=== PATIENT | male | born 1990 | race Caucasian/White ===

== ENCOUNTER 2021-09-06 10:42 | Emergency (ER) | payer OTHER, SELFPAY ==
--- NOTE | 2021-09-06 10:58 | DI.RAD.S_ITS ---
PROCEDURE: XR CHEST 1V INDICATIONS: chest pain TECHNIQUE: One view of the chest was acquired. COMPARISON: None. FINDINGS: Surgical changes and devices: None. Lungs and pleura: Lungs are clear. No pleural effusions or pneumothorax. Low lung volumes accentuate pulmonary interstitium and heart size. Mediastinum: Mediastinal contours appear normal. Heart size is normal. Bones and chest wall: No suspicious bony lesions. Overlying soft tissues appear unremarkable. IMPRESSION: No acute cardiopulmonary findings Approved by: Davon Langley M.D. on 09/06/2021 at 10:31
[2021-09-06 11:00] VITALS: BP 136/101; PULSE 96; RESP 20; TEMP 36.8; O2SAT 97; BMI 38.1
[2021-09-06 11:08] VITALS: PULSE 86; RESP 22; O2SAT 95
[2021-09-06 11:12] LABS: Add Manual Diff / Slide Review NO; Basophils Absolute Auto 100 /uL (0-100); Basophils Percent Auto 0.8 % (0-2); Eosinophils Absolute Auto 200 /uL (0-450); Eosinophils Percent Auto 3.2 % (2-4); Hematocrit 42.5 % (41-53); Hemoglobin 15.1 g/dL (13.5-17.5); Lymphocytes Absolute Auto 2200 /uL (1100-4500); Lymphocytes Percent Auto 31.5 % (25-40); Mean Corpuscular HGB Conc 35.7 % (30-36); Mean Corpuscular Hemoglobin 32.8 PG (26-34); Mean Corpuscular Volume 91.9 fL (80-100); Monocytes Absolute Auto 400 /uL (0-900); Monocytes Percent Auto 6.5 % (3-14); Neutrophils Absolute Auto 4000 /uL (1500-7000); Platelet Count 249 X10^3/uL (150-400); Red Blood Cell Count 4.62 X10^6/uL (4.5-5.9); Red Cell Distribution Width 12.6 % (11.6-14.8); White Blood Cell Count 6.9 X10^3/uL (4.5-11.0)
[2021-09-06 11:30] VITALS: PULSE 81; RESP 17; O2SAT 98
[2021-09-06 11:39] LABS: Alanine Aminotransferase 145 IU/L (<50); Albumin 5.2 g/dL (3.5-5.0); Albumin Globulin Ratio 1.3 (1.0-2.8); Alkaline Phosphatase 76 U/L (38-126); Aspartate Aminotransferase 84 IU/L (17-59); BUN Creatinine Ratio 19.8 (6-22); Bilirubin Total 0.8 mg/dL (0.2-1.3); Blood Urea Nitrogen 16 mg/dL (9-20); Calcium 9.6 mg/dL (8.4-10.2); Carbon Dioxide 23 mmol/L (22-32); Chloride 104 mmol/L (98-107); Creatine Kinase 111 U/L (55-170); Estimated Glomerular Filt Rate > 60 mL/min (>60); Globulin 3.9 g/dL (1.7-4.1); Glucose 150 mg/dL (70-100); HEMOLYSIS < 15 (0-50); Lipase 132 U/L (23-300); Magnesium 1.8 mg/dL (1.6-2.3); Potassium 3.9 mmol/L (3.4-5.1); Sodium 139 mmol/L (137-145); Total Protein 9.1 g/dL (6.3-8.2)
[2021-09-06 11:50] LABS: Troponin I < 0.012 ng/mL (0.01-0.034)
[2021-09-06 12:00] VITALS: PULSE 88; RESP 24; O2SAT 96
[2021-09-06 12:05] LABS: CKMB % Relative Index 0.7 % (1.5-5.0); Creatine Kinase MB 0.77 ng/mL (<2.37)
[2021-09-06 12:30] VITALS: PULSE 89; RESP 24; O2SAT 95
[2021-09-06] MEDS: hydrOXYzine pamoate 25 MG CAPSULE PO (12:35)
--- NOTE | 2021-09-06 12:35 | ED.CHESTPAIN ---
HPI - Chest Pain <Katherine Ovalle [facility] - Last Filed: 09/06/21 14:18> General Chief Complaint: Chest Pain Stated Complaint: think he had a heart attack this morning Time Seen by Provider: 09/06/21 12:03 Source: patient Mode of arrival: Family Vehicle Limitations: no limitations History of Present Illness HPI narrative: This is a 30-year-old male who presents to the emergency department complaining of left-sided chest pain and left arm sensation changes which happened last night, and he states he woke up with this same pain again this morning. Patient states that he has been very stressed out at work recently, significantly depressed, anxious, having panic and anxiety symptoms and does not currently have a doctor. Patient states that he has been taking on more at work to help cope with his depression. Patient also states that he drinks a lot of coffee, quit smoking two years ago, drinks 1-2 beers each night and 10-12 beers on the weekends. Patient states that he would like to start getting healthy your, states that he has cut down on his alcohol consumption recently, he feels anxious, endorses thoughts of suicide in the past, not today. Patient denies ever being on an antidepressant, states that he is open to starting one, open to counseling, does not currently have a therapist or Dr. To follow-up with. He is open to seeing social work today denies any homicidal or suicidal ideation this time, denies any audio or visual hallucinations. Patient states he has a history of heartburn and epigastric pain, reports he has not been eating well, uses marijuana occasionally. Patient denies any nausea, vomiting, fever, diaphoresis this morning. He states that he has been having these chest pain symptoms often on associated with anxiety over the last two months. Patient does endorse having suicidal ideation at other times, not currently, with [place]. Related Data Previous Rx's Medication Instructions Recorded alprazolam 0.5 mg tablet (Xanax) 0.5 mg PO BID PRN #14 tab 09/06/21 hydroxyzine HCl 25 mg tablet 25 mg PO BID PRN #20 tab 09/06/21 omeprazole 20 mg capsule,delayed 20 mg PO DAILY #30 cap 09/06/21 release Allergies Allergy/AdvReac Type Severity Reaction Status Date / Time No Known Drug Allergies Allergy Verified 09/06/21 10:57 Review of Systems <TREVON Esposito - Last Filed: 09/06/21 14:18> Review of Systems Narrative: General: denies fever, chills, malaise, sweats, fatigue Head/Neck: denies headache, neck pain, dizziness Eyes: denies visual changes, eye pain Cardio: Endorses chest pain, states was having a racing heart at the time of his chest pain, when he got up, it went away. Respiratory: denies dyspnea, cough, orthopnea, states that he feels short of breath when he is anxious GI: denies abdominal pain, nausea, vomiting, or diarrhea : denies dysuria, hematuria, urinary retention, frequency or incontinence MSK: denies joint pain, muscle weakness Skin: denies rash, itching, skin lesions or other Neuro: denies numbness, tingling Patient History <TREVON Esposito - Last Filed: 09/06/21 14:18> Social History Smoking Status: Former smoker Smoking Status: Former smoker tobacco type: cigarettes alcohol intake frequency: 0-2 drinks per day Alcohol type: beer Substance Use Type: marijuana Exam <TREVON Esposito - Last Filed: 09/06/21 14:18> Narrative Exam Narrative: Independently reviewed vitals signs and nursing notes. General: cooperative, comfortable, in no acute distress, well groomed Head: atraumatic, symmetrical facial expressions Neck: supple Eyes: equal round and reactive, EOMI, conjunctiva normal Nose: nares patent, no rhinorrhea Mouth/Throat: moist mucus membranes Cardiovascular: regular rate and rhythm, no peripheral edema, warm extremities Respiratory: normal effort, able to speak in complete sentences, no audible wheezing, stridor, or rales. No retractions or tachypnea. GI: abdomen soft, nontender to palpation, nondistended, no masses, no exquisite tenderness with exam, without guarding or rebound. MSK: moves all extremities, neurovascularly intact, no weakness, normal tone Skin: brisk capillary refill, no rash, no erythema Neuro: normal speech and cognition, A&O x3 Psych: mental status is grossly normal, congruent mood, normal affect, pleasant and cooperative, patient is tearful when talking about his depression, he is open to therapy, antidepressant medication, social work, and establishing care with primary care, he is seeking out today and denies any intention of self-harm. Initial Vital Signs Initial Vital Signs: Vital Signs Temperature 98.2 F 09/06/21 11:00 Pulse Rate 96 H 09/06/21 11:00 Respiratory Rate 20 09/06/21 11:00 Blood Pressure 136/101 H 09/06/21 11:00 Pulse Oximetry 97 09/06/21 11:00 <Raissa Ott DO - Last Filed: 09/08/21 10:49> Initial Vital Signs Initial Vital Signs: Vital Signs Temperature 98.2 F 09/06/21 11:00 Pulse Rate 96 H 09/06/21 11:00 Respiratory Rate 20 09/06/21 11:00 Blood Pressure 136/101 H 09/06/21 11:00 Pulse Oximetry 97 09/06/21 11:00 Course <TREVON Esposito - Last Filed: 09/06/21 14:18> Orders Ordered: Discontinued Medications Hydroxyzine Pamoate (Hydroxyzine Pamoate 25 Mg Capsule) 25 mg PO NOW ONE Stop: 09/06/21 12:23 Last Admin: 09/06/21 12:35 Dose: 25 mg Documented by: LUCERO Pantoprazole Sodium (Pantoprazole Dr 20 Mg Tablet) 20 mg PO NOW ONE Stop: 09/06/21 12:23 Last Admin: 09/06/21 12:36 Dose: 20 mg Documented by: LUCERO Vital Signs Vital signs: Vital Signs - 8 hr 09/06/21 11:00 09/06/21 11:08 09/06/21 11:30 Temperature 98.2 F Pulse Rate 96 H 86 81 Respiratory Rate 20 22 17 Blood Pressure 136/101 H Pulse Oximetry 97 95 98 09/06/21 12:00 09/06/21 12:30 09/06/21 13:00 Temperature Pulse Rate 88 89 94 H Respiratory Rate 24 24 18 Blood Pressure Pulse Oximetry 96 95 96 <Raissa Ott DO - Last Filed: 09/08/21 10:49> Orders Ordered: Discontinued Medications Hydroxyzine Pamoate (Hydroxyzine Pamoate 25 Mg Capsule) 25 mg PO NOW ONE Stop: 09/06/21 12:23 Last Admin: 09/06/21 12:35 Dose: 25 mg Documented by: LUCERO Pantoprazole Sodium (Pantoprazole Dr 20 Mg Tablet) 20 mg PO NOW ONE Stop: 09/06/21 12:23 Last Admin: 09/06/21 12:36 Dose: 20 mg Documented by: LUCERO Vital Signs Vital signs: Vital Signs - 8 hr 09/06/21 11:00 09/06/21 11:08 09/06/21 11:30 Temperature 98.2 F Pulse Rate 96 H 86 81 Respiratory Rate 20 22 17 Blood Pressure 136/101 H Pulse Oximetry 97 95 98 09/06/21 12:00 09/06/21 12:30 09/06/21 13:00 Temperature Pulse Rate 88 89 94 H Respiratory Rate 24 24 18 Blood Pressure Pulse Oximetry 96 95 96 MDM - Chest Pain <TREVON Esposito - Last Filed: 09/06/21 14:18> Lab Data Result diagrams: 09/06/21 11:04 09/06/21 11:04 Labs: Lab Results 09/06/21 09/06/21 Range/Units 11:04 11:04 WBC 6.9 (4.5-11.0) X10^3/uL RBC 4.62 (4.5-5.9) X10^6/uL Hgb 15.1 (13.5-17.5) g/dL Hct 42.5 (41-53) % MCV 91.9 (80-100) fL MCH 32.8 (26-34) PG MCHC 35.7 (30-36) % RDW 12.6 (11.6-14.8) % Plt Count 249 (150-400) X10^3/uL Neut % (Auto) 58.0 (50-75) % Lymph % (Auto) 31.5 (25-40) % [place] % (Auto) 6.5 (3-14) % Eos % (Auto) 3.2 (2-4) % Baso % (Auto) 0.8 (0-2) % Neut # (Auto) 4000 (7680-9539) /uL Lymph # (Auto) 2200 (2205-3324) /uL [place] # (Auto) 400 (0-900) /uL Eos # (Auto) 200 (0-450) /uL Baso # (Auto) 100 (0-100) /uL Sodium 139 (137-145) mmol/L Potassium 3.9 (3.4-5.1) mmol/L Chloride 104 (98-107) mmol/L Carbon Dioxide 23 (22-32) mmol/L BUN 16 (9-20) mg/dL Creatinine 0.81 (0.66-1.25) mg/dL Estimated GFR > 60 (>60) mL/min BUN/Creatinine Ratio 19.8 (6-22) Glucose 150 H (70-100) mg/dL Calcium 9.6 (8.4-10.2) mg/dL Magnesium 1.8 (1.6-2.3) mg/dL Total Bilirubin 0.8 (0.2-1.3) mg/dL AST 84 H (17-59) IU/L ALT 145 H (<50) IU/L Alkaline Phosphatase 76 (38-126) U/L Total Creatine Kinase 111 (55-170) U/L CK-MB (CK-2) 0.77 (<2.37) ng/mL CK-MB (CK-2) Rel Index 0.7 L (1.5-5.0) % Troponin I < 0.012 (0.01-0.034) ng/mL Total Protein 9.1 H (6.3-8.2) g/dL Albumin 5.2 H (3.5-5.0) g/dL Globulin 3.9 (1.7-4.1) g/dL Albumin/Globulin Ratio 1.3 (1.0-2.8) Lipase 132 (23-300) U/L Imaging Data Chest x-ray: Radiologist's Impression: PROCEDURE:? XR CHEST 1V ? INDICATIONS:? chest pain ? TECHNIQUE:? One view of the chest was acquired.? ? COMPARISON:? None. ? FINDINGS:? ? Surgical changes and devices:? None.? ? Lungs and pleura:? Lungs are clear.? No pleural effusions or pneumothorax.? Low lung volumes accentuate pulmonary interstitium and heart size. ? Mediastinum:? Mediastinal contours appear normal.? Heart size is normal.? ? Bones and chest wall:? No suspicious bony lesions.? Overlying soft tissues appear unremarkable.? ? IMPRESSION:? No acute cardiopulmonary findings ? ? ? Approved by: Davon Langley M.D. on 09/06/2021 at 10:31? ECG Data Interpretation: EKG independently reviewed by myself and Dr. Ott and reveals normal sinus rhythm at [85] bpm with regular axis and intervals. No STEMI, ST segment changes, arrhythmia, or acute ischemic changes. MDM Narrative Medical decision making narrative: This is a 30-year-old male who presents to the emergency department today for chest pain which started last night associated with anxiety, epigastric pain, left arm sensation changes, and he woke up with this pain which was ongoing this morning. States that when he got out of bed, symptoms improved, came to the emergency department because he does not know how to deal with this pain that has been often on over the last two months. Patient endorses that he has been under a lot of stress at work, taking on more work to cope with his anxiety and depression at home, drinking 10-12 beers on the weekends, and 1-2 beers each night. Chest x-ray was negative for acute cardiopulmonary findings. Lab work does not show any leukocytosis, AST and ALT elevated at 84 and 145, no elevation test alk phosphatase, total CK, CK-MB, troponin, or lipase. Patient appears slightly dehydrated today, states he has not had food yet, has been tearful, but was social work to establish care with a primary care provider to follow-up with regarding his chest pain and depression symptoms. Patient endorses having a girlfriend and a child, he does not have active suicidal ideation today but states that he has and his plan [place]. Social Work saw the patient today, she is establishing an appointment with primary care, patient contracts for safety, denies active suicidal ideation. Patient understands to follow-up at his appointment that was made for him with Dr. De La Rosa on 09/21/2021 at 1000 hours. Patient contracted for his safety, denies any suicidal homicidal ideation, patient is gracious for the care, was tearful and was prescribed omeprazole daily as he endorses acid reflux symptoms which have been bothersome lately, he was prescribed hydroxyzine for as needed anxiety and panic symptoms, additionally he was given alprazolam to use for extreme incidences of anxiety and panic until he can follow-up at his primary care appointment. Multiple causes of chest pain considered including [place], PE, pneumothorax, pneumonia, aortic dissection, and pleurisy. Patient reports no radiation, no diaphoresis, no provocation with exertion, and no vomiting. Patient is appropriate and amenable to discharge home. Vital signs are stable on repeat examination is unremarkable. Patient has been informed of results. Patient has been given strict return to ER precautions for any new or worsening symptoms. Patient understands to follow up closely with outpatient providers as instructed. Patient understands plan and agrees to discharge home. All questions and concerns answered at this time. <Raissa Ott, DO - Last Filed: 09/08/21 10:49> Lab Data Labs: Lab Results 09/06/21 09/06/21 Range/Units 11:04 11:04 WBC 6.9 (4.5-11.0) X10^3/uL RBC 4.62 (4.5-5.9) X10^6/uL Hgb 15.1 (13.5-17.5) g/dL Hct 42.5 (41-53) % MCV 91.9 (80-100) fL MCH 32.8 (26-34) PG MCHC 35.7 (30-36) % RDW 12.6 (11.6-14.8) % Plt Count 249 (150-400) X10^3/uL Neut % (Auto) 58.0 (50-75) % Lymph % (Auto) 31.5 (25-40) % [place] % (Auto) 6.5 (3-14) % Eos % (Auto) 3.2 (2-4) % Baso % (Auto) 0.8 (0-2) % Neut # (Auto) 4000 (1296-2144) /uL Lymph # (Auto) 2200 (7915-1696) /uL [place] # (Auto) 400 (0-900) /uL Eos # (Auto) 200 (0-450) /uL Baso # (Auto) 100 (0-100) /uL Sodium 139 (137-145) mmol/L Potassium 3.9 (3.4-5.1) mmol/L Chloride 104 (98-107) mmol/L Carbon Dioxide 23 (22-32) mmol/L BUN 16 (9-20) mg/dL Creatinine 0.81 (0.66-1.25) mg/dL Estimated GFR > 60 (>60) mL/min BUN/Creatinine Ratio 19.8 (6-22) Glucose 150 H (70-100) mg/dL Calcium 9.6 (8.4-10.2) mg/dL Magnesium 1.8 (1.6-2.3) mg/dL Total Bilirubin 0.8 (0.2-1.3) mg/dL AST 84 H (17-59) IU/L ALT 145 H (<50) IU/L Alkaline Phosphatase 76 (38-126) U/L Total Creatine Kinase 111 (55-170) U/L CK-MB (CK-2) 0.77 (<2.37) ng/mL CK-MB (CK-2) Rel Index 0.7 L (1.5-5.0) % Troponin I < 0.012 (0.01-0.034) ng/mL Total Protein 9.1 H (6.3-8.2) g/dL Albumin 5.2 H (3.5-5.0) g/dL Globulin 3.9 (1.7-4.1) g/dL Albumin/Globulin Ratio 1.3 (1.0-2.8) Lipase 132 (23-300) U/L ECG Data Interpretation: EKG independently reviewed by myself and Dr. Ott and reveals normal sinus rhythm at [85] bpm with regular axis and intervals. No STEMI, ST segment changes, arrhythmia, or acute ischemic changes. EKG shows sinus rhythm, rate 85 HI 194 QRS of 94 and QTC 428. No acute ST elevation depression noted. Patient does not have priors for comparison but does have a Q-wave in 3 AVF with inverted P in 3. Discharge Plan Departure Patient Disposition: Home Clinical Impression: Anxiety, Depression Chest pain Qualifiers: Chest pain type: unspecified Qualified Code(s): R07.9 - Chest pain, unspecified Instructions: Depression, Anxiety Disorders, DI for Anxiety -- Adult, DI for Chest Pain Activity Restrictions/Additional Instructions: *You have been diagnosed with chest pain, likely related to stress, anxiety, and depression. Please follow-up with Dr. Guido De La Rosa at [facility] on [facility] on Friday09/21/21 Check in @ 10:00 AM. Please discuss your symptoms, your anxiety, depression, medical history, goals, and anything that will help you live your best life. Dr. De La Rosa is supportive and will be available for you to follow-up with regarding these issues and he will help you get to where you want to be. Please try to decrease any unhealthy coping strategies like heavy coffee drinking, alcohol consumption, staying up to late or avoiding others. Please try to go for a walk each day if you can, take some deep breaths, practice meditation and use the anti anxiety medications as needed. I have given you a short prescription of hydroxyzine which you can use during the daytime if you need to for panic symptom that comes on, able hopefully reduce some of the severity of that. I have given you a prescription of Xanax, although I do not recommend this medication as it can be habit-forming, if you are feeling severe chest pain like you had this morning and last night, this is what that is for to help you reeking your breath and mental clarity again. Please practice slow deep breaths when you feel these anxiety symptoms coming on, go to your appointment with Dr. De La Rosa, this will be great for you to have follow-up with him. Please return to the emergency department for any new or worsening symptoms, homicidal or suicidal ideation, or any other emergent concerns. Thank you for trusting us with your care, I wish you the best. Please take the omeprazole each morning before food or water or coffee, this will help prevent your stomach from ulcer. *What to do: *Please continue to take your regular medications as directed. [ x] New medication prescriptions sent to your pharmacy: [ [facility]] [ ] New medication written as a paper prescription [ ] No new medications given *Please follow up with your primary care provider in 2-3 days, call for an appointment. Let them know you were seen in the Emergency Department and that we asked that you be seen for follow-up. We will electronically transmit a record of today's note if your PCP is in our system *If you do not have a primary care provider please contact [phone] to establish care with one of the [facility] primary care providers. *Return to Emergency Department if you should have any new, worsening or concerning symptoms, such as [fever greater than 101F, chills, worsening pain, persistent vomiting or other bothersome symptoms] Prescriptions: New hydroxyzine HCl 25 mg tablet 25 mg PO BID PRN (Reason: anxiety) Qty: 20 0RF Rx Instructions: Please take one tab as needed for symptoms of anxiety or panic attack, this is the least sedating option for daytime. alprazolam [Xanax] 0.5 mg tablet 0.5 mg PO BID PRN (Reason: anxiety) Qty: 14 0RF omeprazole 20 mg capsule,delayed release(DR/EC) 20 mg PO DAILY Qty: 30 0RF Referrals: Guido De La Rosa DO [Physician] - 7-10 days Stand Alone Forms: Work Release Note <Raissa Ott DO - Last Filed: 09/08/21 10:49> Cosign ED Attending Cosignature Attestation: I was immediately available in the department for consultation. Documentation has been reviewed.
[2021-09-06] MEDS: PANTOPRAZOLE DR 20 MG TABLET PO (12:36)
[2021-09-06 13:00] VITALS: PULSE 94; RESP 18; O2SAT 96
--- NOTE | 2021-09-06 13:28 | CM.SWNOTE ---
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 Patient later endorses concern for anxiety and depression. Patient endorses passive thoughts of SI with plan but denies current SI. 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 Patient endorses increasing depression and anxiety due to the stresses of work and patient states he has been coping with alcohol. Patient Strengths Patient is seeking help, patient can contract for safety and patient identifies supports. Current Behavioral Health Provider(s) No hx, patient is interested Include Facility, Provider, Ph. # in therapist Psych. Hx Mental Health and Chemical Patient endorses hx of Dependency Depression, Anxiety and SI. Family Hx of Behavioral Abuse None reported Psychiatric Hospitalizations (date(s)/ None reported location) Psychosocial information & Support Patient is 30 y/o male who Systems resides in [place] with his 5 y/o daughter and girlfriend . Patient endorses brother, and girlfriend as supports. School/Work Patient works at [employer] Concerns Legal Matters - Outstanding Issues None reported Mental Status Orientation (Person/Place/Time) A/Ox4 Stated Mood fine, better Affect (Congruent with Mood?) euthymic, tearful during appropriate times, full range, congruent with mood Thought Content - Specify/Describe None reported Obsessions, Delusions, Hallucinations Thought Processes (Zhshbsx-Igpfrpne-Neoz coherent Mrjaiyfq-Hcnfvqub-Hskxukmqlm- Ozyziekfojxtkj-Jdbsjco-Efyrbjphbcrh- Thought Blocking) Speech (Mrxxqk-Rnun-Oojpoms-Rapid-Soft- normal Loud-Pressured) Motor (Tnjoea-Hgxllfubw-Xrpw-Other) normal Insight (Yovx-Apoh-Ziak/Limited) fair Judgement (Ebkk-Vozs-Vrhs/Limited) fair Impulse Control (Adequate-Impaired) adequate Memory (Hbhgbxqhq-Yxngat-Xuxitc, intact, not formally assessed Impaired-Intact) Concentration (Intact-Impaired) intact Attention (Intact-Impaired) intact Behavior (Appropriate-Inappropriate) appropriate Additional Comment Patient presents as calm, communicative and cooperative. Risk Assessment Suicidal Ideation (Plan) Yes Homicidal Ideation (Plan) No Comment Patient denies HI. Patient endorses passive SI every week or two with thoughts of [place]. Patient endorses seems like it would suck and mentions his daughter as a reason not to go through with plan. Patient denies current SI and endorses current safety going home. Intervention Intervention METAL FURNITURE REPAIRER enters room to meet with patient. Patient endorses the stress of his job is contributing to increased depression and anxiety. Patient states that he truly thought he was having a heart attack this morning but patient now realizes after further medical work up at the ED that it was anxiety driven. Patient endorses that he has been coping with his increased anxiety and depression by drinking after work and during the weekends. Patient endorses he drinks a couple beers after dinner and 6-8 beers during the weekends over the last year. Patient endorses and acknowledges that this is not healthy. Patient endorses interest in PCP, finding medication that may work, and finding a therapist. Patient denies current SI but endorses ongoing passive SI every week or two with thoughts of jumping [place]. Patient denies current SI and endorses safety. Patient contracts for safety and states that if he was having these thoughts he would tell his brother and/or girlfriend who live locally. METAL FURNITURE REPAIRER calls [facility] and schedules patient for [facility] care/ED f/u appt with Dr. Guido De La Rosa for Friday09/21/21 at 10:30 AM. METAL FURNITURE REPAIRER prints out crisis contact information and list of MH providers that accept patient' s insurance. It is the opinion of this METAL FURNITURE REPAIRER that patient is safe to d/c to home when medically clear. Patient has PCP f/u and endorses agreement to seek out outpatient supports. METAL FURNITURE REPAIRER reviews the above with ED provider Katherine Ovalle PA-C who indicates agreement and understanding. Plan RA Plan Patient to d/c to home when medically clear with PCP f/u and patient to seek out MH outpatient provider KATE Padilla
== END 2021-09-06 13:26 | disposition home or self-care (01) ==
PROVIDERS: Emergency Medicine; Emergency Provider Nurse Practitioner Critical Care Medicine
DX: R07.9 Chest pain, unspecified (principal); F41.9 Anxiety disorder, unspecified; F32.A Depression, unspecified; R10.13 Epigastric pain
CPT/HCPCS: 36415; 71045; 80053; 82550; 82553; 83690; 83735; 84484; 85025; 93005; 99284

== ENCOUNTER → 2022-08-28 14:20 | Outpatient (CLI) | payer OTHER, SELFPAY | PROVIDERS: PCP Family Medicine; Visit Provider Nurse Practitioner Family | DX: J02.9 Acute pharyngitis, unspecified (principal) | CPT/HCPCS: 87070; 87077; 87147 ==

== ENCOUNTER → 2022-09-11 18:37 | Outpatient (CLI) | payer OTHER, SELFPAY | PROVIDERS: PCP Family Medicine; Visit Provider Nurse Practitioner Family | DX: J02.9 Acute pharyngitis, unspecified (principal) | CPT/HCPCS: 87070 ==

== ENCOUNTER 2022-10-28 06:23 | Emergency (ER) | payer OTHER, SELFPAY ==
[2022-10-28] VITALS (7 sets, daily range): BP systolic 95–136; BP diastolic 58–85; PULSE 93–102; RESP 19–31; TEMP 36.9; O2SAT 92–99; BMI 40.1
--- NOTE | 2022-10-28 06:35 | ED.GENADULT ---
HPI - General Adult <Haley Javier MD - Last Filed: 10/29/22 07:28> General Chief complaint: Chest Pain Stated complaint: chest pain vomiting Time Seen by Provider: 10/28/22 06:25 History of Present Illness HPI narrative: 32-year-old man with a history of anxiety, depression, reflux who was abruptly awoken this morning at 4:00 a.m. with severe nausea and chest pain. He describes large volume emesis with waves of chest pain. The pain was in the left chest radiating through to his back and out through his left arm. He was going to drive himself to the emergency department that was concerned that the pain and chest pressure were both increasing. He called 911. He was given aspirin and was found to be anxious, tachycardic mildly diaphoretic. Given a nitroglycerin which cause increased tachycardia but did reportedly relieve his pain. He states that his last meal was approximately 7:00 p.m. and he went to bed approximately 2:00 a.m. was awoken by today's symptoms at 4:00 a.m.. He has not had similar events. There is no family history of early heart disease. He states that he has not had increased fatigue, exertional dyspnea or chest pain in the recent days. He notes occasional palpitations over the previous couple of weeks. He uses occasional marijuana, occasional alcohol denies any other recreational drugs. Related Data Previous Rx's Medication Instructions Recorded alprazolam 0.5 mg tablet (Xanax) 0.5 mg PO BID PRN anxiety #14 tabs 09/06/21 bupropion HCl 150 mg 24 hr tablet, 150 mg PO QAM #90 tabs 09/21/21 extended release bupropion HCl 75 mg tablet 75 mg PO DAILY #7 tabs 09/21/21 hydroxyzine HCl 25 mg tablet 25 mg PO BID PRN anxiety #30 tabs 09/21/21 omeprazole 20 mg capsule,delayed 20 mg PO DAILY #90 caps 09/21/21 release benzonatate 100 mg capsule 100 mg PO BID PRN cough #20 caps 08/28/22 fluticasone propionate 50 1 spray intranasal Q12H #16 grams 08/28/22 mcg/actuation nasal spray,suspension (Flonase Allergy Relief) ondansetron 4 mg disintegrating 4 mg PO Q6-8H PRN nausea and 10/28/22 tablet vomiting #10 tabs Allergies Allergy/AdvReac Type Severity Reaction Status Date / Time No Known Drug Allergies Allergy Verified 08/28/22 14:24 Review of Systems <Haley Javier MD - Last Filed: 10/29/22 07:28> Review of Systems Narrative: Pertinent positive and negative findings as per HPI Patient History <Haley Javier MD - Last Filed: 10/29/22 07:28> Medical History Generalized anxiety disorder GERD (gastroesophageal reflux disease) Preventative health care Social History Smoking Status: Former smoker Smoking Status: Former smoker tobacco type: cigarettes alcohol intake frequency: 0-2 drinks per day Alcohol type: beer Substance Use Type: marijuana Exam <Haley Javier MD - Last Filed: 10/29/22 07:28> Initial Vital Signs Initial Vital Signs: Vital Signs Pulse Rate 99 H 10/28/22 06:30 Respiratory Rate 22 10/28/22 06:30 Blood Pressure 117/66 10/28/22 06:30 Pulse Oximetry 93 10/28/22 06:30 General: Pale, anxious appears uncomfortable without any acute respiratory distress. HEENT: Moist mucous membranes, normal sclera with reactive pupils, Neck: No JVD, supple, no cervical adenopathy Respiratory: Lungs are clear to auscultation, no wheezing no rales no rhonchi. Full and symmetrical air movement Cardiac: Mild tachycardia but otherwise Regular rate and rhythm no murmurs no bruits. He has no reproducible chest pain with palpation along sternal borders Abdomen: Soft, nontender, specifically no epigastric or right upper quadrant tenderness. Good bowel tones, no flank pain Skin: Pale, Warm and dry, no rashes Neurologic: Grossly neurologically intact with no obvious asymmetries or abnormalities Extremities: No trauma, well perfused Psych: Cooperative, anxious but appropriate insight and affect <Zainab Hernandez DO - Last Filed: 10/28/22 08:38> Initial Vital Signs Initial Vital Signs: Vital Signs Pulse Rate 99 H 10/28/22 06:30 Respiratory Rate 10/28/22 06:30 Blood Pressure 117/66 10/28/22 06:30 Pulse Oximetry 93 10/28/22 06:30 Course <Haley Javier MD - Last Filed: 10/29/22 07:28> Orders Ordered: ED Orders 10/28/22 EKG-12 Lead Routine 10/28/22 06:30 Complete Blood Count AUTO DIFF Stat Comprehensive Metabolic Panel Stat Lipase Stat Magnesium Stat Troponin I Stat 10/28/22 06:36 XR chest 1V Stat 10/28/22 06:45 US abdomen limited Stat Vital Signs Vital signs: Vital Signs - 8 hr 10/28/22 06:36 10/28/22 06:30 10/28/22 06:30 Temperature 98.4 F Pulse Rate 102 H 99 H Respiratory Rate 22 22 Blood Pressure 124/64 117/66 Pulse Oximetry 92 93 Oxygen Delivery Method Room Air 10/28/22 07:00 10/28/22 07:00 10/28/22 07:30 Temperature Pulse Rate 93 H Respiratory Rate 25 H Blood Pressure 115/79 98/58 L Pulse Oximetry 97 Oxygen Delivery Method 10/28/22 07:30 10/28/22 08:00 10/28/22 08:00 Temperature Pulse Rate 97 H 97 H Respiratory Rate 19 21 Blood Pressure 95/65 Pulse Oximetry 97 96 Oxygen Delivery Method <Zainab Hernandez DO - Last Filed: 10/28/22 08:38> Orders Ordered: ED Orders 10/28/22 EKG-12 Lead Routine 10/28/22 06:30 Complete Blood Count AUTO DIFF Stat Comprehensive Metabolic Panel Stat Lipase Stat Magnesium Stat Troponin I Stat 10/28/22 06:36 XR chest 1V Stat 10/28/22 06:45 US abdomen limited Stat Vital Signs Vital signs: Vital Signs - 8 hr 10/28/22 06:36 10/28/22 06:30 10/28/22 06:30 Temperature 98.4 F Pulse Rate 102 H 99 H Respiratory Rate 22 22 Blood Pressure 124/64 117/66 Pulse Oximetry 92 93 Oxygen Delivery Method Room Air 10/28/22 07:00 10/28/22 07:00 10/28/22 07:30 Temperature Pulse Rate 93 H Respiratory Rate 25 H Blood Pressure 115/79 98/58 L Pulse Oximetry 97 Oxygen Delivery Method 10/28/22 07:30 10/28/22 08:00 10/28/22 08:00 Temperature Pulse Rate 97 H 97 H Respiratory Rate 19 21 Blood Pressure 95/65 Pulse Oximetry 97 96 Oxygen Delivery Method Medical Decision Making <Haley Javier MD - Last Filed: 10/29/22 07:28> Lab Data 10/28/22 06:30 10/28/22 06:30 Labs: Lab Results 10/28/22 10/28/22 10/28/22 Range/Units 06:30 06:30 06:30 WBC 7.1 (4.5-11.0) X10^3/uL RBC 4.71 (4.5-5.9) X10^6/uL Hgb 14.8 (13.5-17.5) g/dL Hct 42.1 (41-53) % MCV 89.5 (80-100) fL MCH 31.4 (26-34) PG MCHC 35.0 (30-36) % RDW 12.5 (11.6-14.8) % Plt Count 260 (150-400) X10^3/uL Neut % (Auto) 55.8 (50-75) % Lymph % (Auto) 33.6 (25-40) % Berrien % (Auto) 6.5 (3-14) % Eos % (Auto) 3.2 (2-4) % Baso % (Auto) 0.9 (0-2) % Neut # (Auto) 4000 (9476-8772) /uL Lymph # (Auto) 2400 (5354-8433) /uL Berrien # (Auto) 500 (0-900) /uL Eos # (Auto) 200 (0-450) /uL Baso # (Auto) 100 (0-100) /uL Sodium 136 L (137-145) mmol/L Potassium 3.9 (3.4-5.1) mmol/L Chloride 100 (98-107) mmol/L Carbon Dioxide 24 (22-32) mmol/L BUN 10 (9-20) mg/dL Creatinine 0.62 L (0.66-1.25) mg/dL Estimated GFR > 60 (>60) mL/min BUN/Creatinine Ratio 16.1 (6-22) Glucose 303 H (70-100) mg/dL Hgb A1c (Ref Lab) (4.8-5.6) % Calcium 9.4 (8.4-10.2) mg/dL Magnesium 1.9 (1.6-2.3) mg/dL Total Bilirubin 0.9 (0.2-1.3) mg/dL AST 68 H (17-59) IU/L ALT 116 H (<50) IU/L Alkaline Phosphatase 83 (38-126) U/L Troponin I < 0.012 (0.01-0.034) ng/mL Total Protein 8.4 H (6.3-8.2) g/dL Albumin 4.6 (3.5-5.0) g/dL Globulin 3.8 (1.7-4.1) g/dL Albumin/Globulin Ratio 1.2 (1.0-2.8) Lipase 124 (23-300) U/L 10/28/22 Range/Units 06:30 WBC (4.5-11.0) X10^3/uL RBC (4.5-5.9) X10^6/uL Hgb (13.5-17.5) g/dL Hct (41-53) % MCV (80-100) fL MCH (26-34) PG MCHC (30-36) % RDW (11.6-14.8) % Plt Count (150-400) X10^3/uL Neut % (Auto) (50-75) % Lymph % (Auto) (25-40) % Berrien % (Auto) (3-14) % Eos % (Auto) (2-4) % Baso % (Auto) (0-2) % Neut # (Auto) (3841-2187) /uL Lymph # (Auto) (5092-8682) /uL Berrien # (Auto) (0-900) /uL Eos # (Auto) (0-450) /uL Baso # (Auto) (0-100) /uL Sodium (137-145) mmol/L Potassium (3.4-5.1) mmol/L Chloride (98-107) mmol/L Carbon Dioxide (22-32) mmol/L BUN (9-20) mg/dL Creatinine (0.66-1.25) mg/dL Estimated GFR (>60) mL/min BUN/Creatinine Ratio (6-22) Glucose (70-100) mg/dL Hgb A1c (Ref Lab) 9.0 H (4.8-5.6) % Calcium (8.4-10.2) mg/dL Magnesium (1.6-2.3) mg/dL Total Bilirubin (0.2-1.3) mg/dL AST (17-59) IU/L ALT (<50) IU/L Alkaline Phosphatase (38-126) U/L Troponin I (0.01-0.034) ng/mL Total Protein (6.3-8.2) g/dL Albumin (3.5-5.0) g/dL Globulin (1.7-4.1) g/dL Albumin/Globulin Ratio (1.0-2.8) Lipase (23-300) U/L MDM Narrative Medical decision making narrative: CC: Abrupt emesis large volume 4:00 a.m. accompanied with chest pain. Isn't sure which actually came 1st. Both are now resolved. This is an acute problem undiagnosed uncertain prognosis Complicating co-morbidities: Patient has been told that he had borderline diabetes with a blood sugar at almost 300 today thank actual diabetes is more appropriate diagnosis. Generalized anxiety disorder, reflux not currently using any omeprazole. Data collected from: patient, medics Medical records reviewed: Primary care note from September of last year, walk-in clinic visits from August of this year are all reviewed Differential considered: Acute coronary syndrome, dissection, cardiomyopathy, pancreatitis, peptic ulcer/gastric ulcer/gastritis, gallbladder disease Exam documented above, pertinent findings include: Aside from looking uncomfortable and anxious his exam physically is quite benign Lab Test results independently reviewed as above. Pertinent findings: Independently reviewed EKG sinus rhythm at a rate of 98. Normal intervals, normal axis no acute ischemic changes Imaging studies independently reviewed: Consultations: Treatments: Re-evaluations: 645am patient is much calmer, no pain behaviors and calmly scrolling through his phone at this time. Discussion: <Zainab Hernandez, DO - Last Filed: 10/28/22 08:38> Lab Data Labs: Lab Results 10/28/22 10/28/22 10/28/22 Range/Units 06:30 06:30 06:30 WBC 7.1 (4.5-11.0) X10^3/uL RBC 4.71 (4.5-5.9) X10^6/uL Hgb 14.8 (13.5-17.5) g/dL Hct 42.1 (41-53) % MCV 89.5 (80-100) fL MCH 31.4 (26-34) PG MCHC 35.0 (30-36) % RDW 12.5 (11.6-14.8) % Plt Count 260 (150-400) X10^3/uL Neut % (Auto) 55.8 (50-75) % Lymph % (Auto) 33.6 (25-40) % Berrien % (Auto) 6.5 (3-14) % Eos % (Auto) 3.2 (2-4) % Baso % (Auto) 0.9 (0-2) % Neut # (Auto) 4000 (1045-7177) /uL Lymph # (Auto) 2400 (6774-7257) /uL Berrien # (Auto) 500 (0-900) /uL Eos # (Auto) 200 (0-450) /uL Baso # (Auto) 100 (0-100) /uL Sodium 136 L (137-145) mmol/L Potassium 3.9 (3.4-5.1) mmol/L Chloride 100 (98-107) mmol/L Carbon Dioxide 24 (22-32) mmol/L BUN 10 (9-20) mg/dL Creatinine 0.62 L (0.66-1.25) mg/dL Estimated GFR > 60 (>60) mL/min BUN/Creatinine Ratio 16.1 (6-22) Glucose 303 H (70-100) mg/dL Hgb A1c (Ref Lab) (4.8-5.6) % Calcium 9.4 (8.4-10.2) mg/dL Magnesium 1.9 (1.6-2.3) mg/dL Total Bilirubin 0.9 (0.2-1.3) mg/dL AST 68 H (17-59) IU/L ALT 116 H (<50) IU/L Alkaline Phosphatase 83 (38-126) U/L Troponin I < 0.012 (0.01-0.034) ng/mL Total Protein 8.4 H (6.3-8.2) g/dL Albumin 4.6 (3.5-5.0) g/dL Globulin 3.8 (1.7-4.1) g/dL Albumin/Globulin Ratio 1.2 (1.0-2.8) Lipase 124 (23-300) U/L 10/28/22 Range/Units 06:30 WBC (4.5-11.0) X10^3/uL RBC (4.5-5.9) X10^6/uL Hgb (13.5-17.5) g/dL Hct (41-53) % MCV (80-100) fL MCH (26-34) PG MCHC (30-36) % RDW (11.6-14.8) % Plt Count (150-400) X10^3/uL Neut % (Auto) (50-75) % Lymph % (Auto) (25-40) % Berrien % (Auto) (3-14) % Eos % (Auto) (2-4) % Baso % (Auto) (0-2) % Neut # (Auto) (7188-3594) /uL Lymph # (Auto) (7822-9894) /uL Berrien # (Auto) (0-900) /uL Eos # (Auto) (0-450) /uL Baso # (Auto) (0-100) /uL Sodium (137-145) mmol/L Potassium (3.4-5.1) mmol/L Chloride (98-107) mmol/L Carbon Dioxide (22-32) mmol/L BUN (9-20) mg/dL Creatinine (0.66-1.25) mg/dL Estimated GFR (>60) mL/min BUN/Creatinine Ratio (6-22) Glucose (70-100) mg/dL Hgb A1c (Ref Lab) 9.0 H (4.8-5.6) % Calcium (8.4-10.2) mg/dL Magnesium (1.6-2.3) mg/dL Total Bilirubin (0.2-1.3) mg/dL AST (17-59) IU/L ALT (<50) IU/L Alkaline Phosphatase (38-126) U/L Troponin I (0.01-0.034) ng/mL Total Protein (6.3-8.2) g/dL Albumin (3.5-5.0) g/dL Globulin (1.7-4.1) g/dL Albumin/Globulin Ratio (1.0-2.8) Lipase (23-300) U/L Imaging Data Chest x-ray: Radiologist's Impression: PROCEDURE:? XR CHEST 1V ? INDICATIONS:? chest pain ? TECHNIQUE:? One view of the chest was acquired.? ? COMPARISON:? [facility], CR, XR CHEST 1V, 09/06/2021, 11:06. ? FINDINGS:? ? Surgical changes and devices:? None.? ? Lungs and pleura:? Lungs are clear.? No pleural effusions or pneumothorax.? ? Mediastinum:? Mediastinal contours appear normal.? Heart size is normal.? ? Bones and chest wall:? No suspicious bony lesions.? Overlying soft tissues appear unremarkable.? ? IMPRESSION:? No acute cardiopulmonary disease. ? ? Dictated by: Feng Beaulieu M.D. on 10/28/2022 at 8:11 ?? US - abdomen: Radiologist's Impression: PROCEDURE:? US ABDOMEN LIMITED ? INDICATIONS:? CONCERN FOR GALLSTONES ? TECHNIQUE:? Real-time scanning was performed of the abdominal and retroperitoneal organs, with image documentation.? ? COMPARISON:? None. ? FINDINGS:? Technically limited due to the patient's body habitus. ? Liver:? Liver is mildly enlarged and demonstrates diffusely increased echotexture.? ? Gallbladder:? There is gallbladder sludge and gravel stones. No gallbladder wall thickening, pericholecystic fluid or sonographic Garcia's sign.? Biliary ducts:? Intrahepatic bile ducts are non-dilated.? Extrahepatic bile duct caliber measures 3.3 mm.? Normal is 6-7 mm or less in diameter, or 10 mm or less post-cholecystectomy.? Pancreas:? Not visualized due to overlying bowel gas.? Miscellaneous:? No free abdominal fluid.? ? ? IMPRESSION:? ? 1. Cholelithiasis with gallbladder sludge and gravel stones.? No ultrasound findings to suggest acute cholecystitis. ? 2.? Diffusely increased hepatic echotexture. This finding is most likely secondary to hepatic fatty infiltration although other hepatocellular disease may have a similar appearance. Recommend clinical correlation.? Dictated by: Feng Beaulieu M.D. on 10/28/2022 at 8:12 ? ? ECG Data Interpretation: Normal sinus rhythm rate 98 OK interval 190 QRS [address] changes Q-wave noted in lead 3 only similar to previous EKG in 2021 MDM Narrative Medical decision making narrative: CC: Abrupt emesis large volume 4:00 a.m. accompanied with chest pain. Isn't sure which actually came 1st. Both are now resolved. This is an acute problem undiagnosed uncertain prognosis Complicating co-morbidities: Patient has been told that he had borderline diabetes with a blood sugar at almost 300 today thank actual diabetes is more appropriate diagnosis. Generalized anxiety disorder, reflux not currently using any omeprazole. Data collected from: patient, medics Medical records reviewed: Primary care note from September of last year, walk-in clinic visits from August of this year are all reviewed Differential considered: Acute coronary syndrome, dissection, cardiomyopathy, pancreatitis, peptic ulcer/gastric ulcer/gastritis, gallbladder disease Exam documented above, pertinent findings include: Aside from looking uncomfortable and anxious his exam physically is quite benign Lab Test results independently reviewed as above. Pertinent findings: Independently reviewed EKG sinus rhythm at a rate of 98. Normal intervals, normal axis no acute ischemic changes Imaging studies independently reviewed: Consultations: Treatments: Re-evaluations: 645am patient is much calmer, no pain behaviors and calmly scrolling through his phone at this time. Discussion: Patient signed out to me by Dr. Javier, I have seen evaluated patient myself. He describes waking up with vomiting and burning into his chest. Blood work today does show elevated glucose of 303. No evidence of DKA. Hemoglobin A1c is a send out and is pending. Mild elevation in liver enzymes AST 60 ALT 116 with a normal bilirubin of 0.9 and a normal lipase. Ultrasound does confirm cholelithiasis without evidence of cholecystitis. He is no leukocytosis or fever. Discussion with patient in regards to diet control and will also likely need surgery consultation and evaluation however nonemergent today. He is given strict return precautions. Overall feeling much better no further nausea or vomiting. Pain is well-controlled. Discharge Plan Departure Patient Disposition: Home Clinical Impression: Gallstones, Diabetes Instructions: Gallstones, DI for Diabetes Type 2 Activity Restrictions/Additional Instructions: *You have been diagnosed with gallstones, diabetes *What to do: At this time please follow gallbladder diet. You will need to have gallbladder removed however not emergent at this time. You also likely need workup for diabetes your sugar was noted to be elevated today. *Continue to take medications as directed Motrin 600 mg every 6 hours if needed for oesq-tn-axprtgry pain Zofran 4 mg every 8 hours needed for nausea or vomiting--> [facility] [place] *Follow up with your primary care provider in 2-3 days or call [phone] Call [facility] today to schedule follow-up appointment *Return to ER if you should have fever, increasing pain, persistent vomiting or any new, worsening or concerning symptoms Prescriptions: New ondansetron 4 mg tablet,disintegrating 4 mg PO Q6-8H PRN (Reason: nausea and vomiting) Qty: 10 0RF No Action fluticasone propionate [Flonase Allergy Relief] 50 mcg/actuation spray,suspension 1 spray intranasal Q12H Qty: 16 0RF Rx Instructions: administer into each nostril benzonatate 100 mg capsule 100 mg PO BID PRN (Reason: cough) Qty: 20 0RF hydroxyzine HCl 25 mg tablet 25 mg PO BID PRN (Reason: anxiety) Qty: 30 1RF Rx Instructions: Please take one tab as needed for symptoms of anxiety or panic attack, this is the least sedating option for daytime. omeprazole 20 mg capsule,delayed release(DR/EC) 20 mg PO DAILY Qty: 90 1RF bupropion HCl 75 mg tablet 75 mg PO DAILY Qty: 7 0RF Rx Instructions: Initiate this prescription 1st bupropion HCl 150 mg tablet extended release 24 hr 150 mg PO QAM Qty: 90 1RF alprazolam [Xanax] 0.5 mg tablet 0.5 mg PO BID PRN (Reason: anxiety) Qty: 14 0RF Referrals: [facility] [Provider Group] Guido De La Rosa DO [Primary Care Provider] - Stand Alone Forms: Patient Portal/API, Work Release Note
--- NOTE | 2022-10-28 06:36 | DI.RAD.S_ITS ---
PROCEDURE: XR CHEST 1V INDICATIONS: chest pain TECHNIQUE: One view of the chest was acquired. COMPARISON: [facility], CR, XR CHEST 1V, 09/06/2021, 11:06. FINDINGS: Surgical changes and devices: None. Lungs and pleura: Lungs are clear. No pleural effusions or pneumothorax. Mediastinum: Mediastinal contours appear normal. Heart size is normal. Bones and chest wall: No suspicious bony lesions. Overlying soft tissues appear unremarkable. IMPRESSION: No acute cardiopulmonary disease. Dictated by: Feng Beaulieu M.D. on 10/28/2022 at 8:11 Approved by: Feng Beaulieu M.D. on 10/28/2022 at 8:11
[2022-10-28 06:44] LABS: Add Manual Diff / Slide Review NO; Basophils Absolute Auto 100 /uL (0-100); Basophils Percent Auto 0.9 % (0-2); Eosinophils Absolute Auto 200 /uL (0-450); Eosinophils Percent Auto 3.2 % (2-4); Hematocrit 42.1 % (41-53); Hemoglobin 14.8 g/dL (13.5-17.5); Lymphocytes Absolute Auto 2400 /uL (1100-4500); Lymphocytes Percent Auto 33.6 % (25-40); Mean Corpuscular Hemoglobin 31.4 PG (26-34); Mean Corpuscular Volume 89.5 fL (80-100); Monocytes Absolute Auto 500 /uL (0-900); Monocytes Percent Auto 6.5 % (3-14); Neutrophils Absolute Auto 4000 /uL (1500-7000); Neutrophils Percent Auto 55.8 % (50-75); Platelet Count 260 X10^3/uL (150-400); Red Blood Cell Count 4.71 X10^6/uL (4.5-5.9); Red Cell Distribution Width 12.5 % (11.6-14.8); White Blood Cell Count 7.1 X10^3/uL (4.5-11.0)
--- NOTE | 2022-10-28 06:45 | DI.US.S_ITS ---
PROCEDURE: US ABDOMEN LIMITED INDICATIONS: CONCERN FOR GALLSTONES TECHNIQUE: Real-time scanning was performed of the abdominal and retroperitoneal organs, with image documentation. COMPARISON: None. FINDINGS: Technically limited due to the patient's body habitus. Liver: Liver is mildly enlarged and demonstrates diffusely increased echotexture. Gallbladder: There is gallbladder sludge and gravel stones. No gallbladder wall thickening, pericholecystic fluid or sonographic Garcia's sign. Biliary ducts: Intrahepatic bile ducts are non-dilated. Extrahepatic bile duct caliber measures 3.3 mm. Normal is 6-7 mm or less in diameter, or 10 mm or less post-cholecystectomy. Pancreas: Not visualized due to overlying bowel gas. Miscellaneous: No free abdominal fluid. IMPRESSION: 1. Cholelithiasis with gallbladder sludge and gravel stones. No ultrasound findings to suggest acute cholecystitis. 2. Diffusely increased hepatic echotexture. This finding is most likely secondary to hepatic fatty infiltration although other hepatocellular disease may have a similar appearance. Recommend clinical correlation. Dictated by: Feng Beaulieu M.D. on 10/28/2022 at 8:12 Approved by: Feng Beaulieu M.D. on 10/28/2022 at 8:15
[2022-10-28 06:54] LABS: Alanine Aminotransferase 116 IU/L (<50); Albumin 4.6 g/dL (3.5-5.0); Albumin Globulin Ratio 1.2 (1.0-2.8); Alkaline Phosphatase 83 U/L (38-126); Aspartate Aminotransferase 68 IU/L (17-59); BUN Creatinine Ratio 16.1 (6-22); Bilirubin Total 0.9 mg/dL (0.2-1.3); Blood Urea Nitrogen 10 mg/dL (9-20); Calcium 9.4 mg/dL (8.4-10.2); Carbon Dioxide 24 mmol/L (22-32); Chloride 100 mmol/L (98-107); Estimated Glomerular Filt Rate > 60 mL/min (>60); Globulin 3.8 g/dL (1.7-4.1); Glucose 303 mg/dL (70-100); HEMOLYSIS 37 (0-50); Potassium 3.9 mmol/L (3.4-5.1); Sodium 136 mmol/L (137-145); Total Protein 8.4 g/dL (6.3-8.2)
[2022-10-28 07:01] LABS: Lipase 124 U/L (23-300); Magnesium 1.9 mg/dL (1.6-2.3)
[2022-10-28 07:06] LABS: Troponin I < 0.012 ng/mL (0.01-0.034)
== END 2022-10-28 08:39 | disposition home or self-care (01) ==
PROVIDERS: Emergency Medicine; Emergency Provider Emergency Medicine; PCP Family Medicine
DX: K80.20 Calculus of gallbladder without cholecystitis without obstruction (principal); E11.9 Type 2 diabetes mellitus without complications; R07.9 Chest pain, unspecified
CPT/HCPCS: 36415; 71045; 76705; 80053; 83036; 83690; 83735; 84484; 85025; 93005; 99283; 99284

== ENCOUNTER 2022-12-04 06:43 | Day surgery (SDC) | payer OTHER, SELFPAY ==
[2022-11-20 12:08] VITALS: BMI 36.4
[2022-12-04] VITALS (9 sets, daily range): BP systolic 126–144; BP diastolic 80–91; PULSE 68–84; RESP 12–17; TEMP 36.3–36.6; O2SAT 93–97; BMI 34.4
--- NOTE | 2022-12-04 | PATH_ITS ---
[facility] Accession Number: [id number] No. of containers..01 Tissue . 01 Material submitted: . gallbladder - GALLBLADDER . 01 Diagnosis: Gallbladder, Cholecystectomy: Mild chronic cholecystitis. COUNT INCLUDES THE [facility] 12/17/2022 1653 Local . 01 Electronically signed: . Ladonna Manley MD, Pathologist NPI- [id number] . 01 Gross description: . The specimen is received in formalin labeled with the patient's name, , and gallbladder consists of an intact gallbladder measuring 8.7 x 3.7 x 3.2 cm. The external surface is unremarkable, the cystic duct margin is inked blue, and no pericystic lymph node is identified. The lumen contains dark green viscous bile with no calculi identified in the lumen or the container. The mucosa is green and velvety with no yellow discoloration, polyps or lesions identified. The martinez average 0.2 cm thick. Mycologist sections to include the cystic duct margin and full thickness sections are submitted in cassette A1. ([id number]) /MRV 12/06/2022 1403 Local . 01 Pathologist provided ICD-10: K81.1 . 01 CPT . 649409 Specimen Comment: A courtesy copy of this report has been sent to [phone] Performed at: 01 [facility] [address] [place] [address], [place], [place] [id number] MD Larry Gilliam MD Phone: [phone]
[2022-12-04] MEDS: LACTATED RINGERS 1,000 ML 100 ML IV (07:40)
--- NOTE | 2022-12-04 07:40 | PM.PREOP ---
Pre-operative Note Interval Note History & Physical reviewed/Exam performed by Physician: Yes Changes to H&P: No
[2022-12-04] MEDS: CEFAZOLIN 2 GM/100 ML PREMIX 100 ML IV (07:45)
--- NOTE | 2022-12-04 07:48 | PM.OP.1 ---
Operative Date/Time/Diagnoses Date of procedure: 12/04/22 Time of procedure: 08:49 Pre-op diagnosis: biliary colic Post-op diagnosis: same Procedure & Clinicians Procedure: Laparoscopic cholecystectomy Same procedure as scheduled: Yes Indications: 32-year-old man with symptoms and radiographic findings consistent with biliary colic Surgeon: Bright Brownlee Concession Worker: Spencer Matute Click Yes if Unassisted: Yes Anesthesia Type: General Operative Notes Findings: Omentum well adhesed to the gallbladder and the surface of the liver. Critical view of safety obtained Specimen(s): other (Gallbladder) Estimated Blood Loss (mL): 20 Procedure in detail: The patient was placed supine on the table and bilateral lower extremity compression devices were applied. Anesthesia was induced they were intubated with an endotracheal tube and received 2g of Ancef. A time-out was performed. They were prepped and draped in sterile fashion. An infraumbilical incision was made. The fascia was elevated incised and the abdomen was entered atraumatically. A blunt tip 12mm balloon trocar was then inserted, pneumoperitoneum was established and inspection of the abdomen demonstrated no evidence of injury. They were placed head up and right side up and then a 11 mm port was placed high in the epigastrium and two 5mm in the right upper quadrant. The omentum was well adhesed to the surface of the liver and over gallbladder. The omentum was then dissected off of the gallbladder and the liver surface in order to reveal the gallbladder. The gallbladder was grasped by the fundus and retracted over the liver and retracted laterally by the infundibulum. Using electrocautery the lateral plane between the gallbladder and the liver was opened towards the fundus. The gallbladder was then retracted laterally and the medial plane was developed in the same manner. With the gallbladder mobilized the bottom of the cystic plate was visualized. The hepatocystic triangle was meticulosly skeletonized with blunt dissection of fat and fibrous tissue from both the front and the back. Only two structures were then clearly seen entering the gallbladder the cystic duct and the cystic artery. With the critical view of safety fully established the cystic duct was clipped twice proximally and once distally using the 10 mm Weck hemoclip applied under direct visualization and then sharply divided. The cystic artery was divided in the same fashion. The gallbladder was removed from the liver bed using electro cautery. The liver bed was then inspected for hemostasis and this was achieved. The abdomen was irrigated with sterile saline and inspection was made that showed the clips in good position. The specimen was removed using Endo-Catch. The abdomen was desufflated. The umbilical fascia was closed with 0 Vicryl in a [id number]-wccaw fashion under direct visualization. Skin incisions were irrigated and closed with 4-0 Monocryl. 30 ml of 0.25% bupivacaine was infiltrated into the subcutaneous tissue of the incisions. The wounds were sealed with Dermabond. Patient emerged from anesthesia was extubated and transferred to recovery in stable condition. The sponge and instrument count at the end of the operation was correct. The assistance of Chino Matute was necessary for exposure and the efficient performance of this operation Complications: none Post-operative Condition: stable Disposition: same day surgery
--- NOTE | 2022-12-04 08:14 | SUR.OPER ---
Supine on padded OR bed, head on pillow, safety belt at thigh, left arm padded and tucked at side. Right arm secured on padded arm board <90 degrees abduction. Legs uncrossed. Padded footboard in place. Tape over blanket to secure lower legs.
[2022-12-04] MEDS: BUPIVACAINE 0.25% (PF) VIAL 30 ML INJ (08:19)
[2022-12-04] MEDS: ONDANSETRON 4 MG/2 ML INJ IV (09:17)
[2022-12-04] MEDS: OXYCODONE/ACETAMINOPHEN 5/325 TABLET 1 TAB PO ×2 (09:19→09:49)
[2022-12-04] MEDS: hydrOXYzine 50 MG/ML INJ IM (09:38)
[2022-12-04] MEDS: fentaNYL 100 MCG/2 ML INJ IV (10:04)
== END 2022-12-04 10:34 | disposition home or self-care (01) ==
PROVIDERS: PCP Family Medicine; Referring Provider Surgery; Visit Provider Surgery
PROC: 0FT44ZZ Resection of Gallbladder, Percutaneous Endoscopic Approach (ICD-10-PCS; CPT 47562; principal; 2022-12-04 07:45)
DX: K81.1 Chronic cholecystitis (principal); E11.9 Type 2 diabetes mellitus without complications; Z79.84 Long term (current) use of oral hypoglycemic drugs; E66.9 Obesity, unspecified; Z68.36 Body mass index [BMI] 36.0-36.9, adult
CPT/HCPCS: 47562; 82962; J0330; J0690; J1100; J1885; J2405; J2704; J3010; J3410; J3490

== ENCOUNTER → 2023-07-19 10:47 | Outpatient (CLI) | payer OTHER, SELFPAY ==
[2023-07-19 12:14] LABS: Add Manual Diff / Slide Review NO; Basophils Absolute Auto 0 /uL (0-100); Basophils Percent Auto 0.3 % (0-2); Eosinophils Absolute Auto 200 /uL (0-450); Eosinophils Percent Auto 3.2 % (2-4); Hematocrit 43.8 % (41-53); Hemoglobin 15.5 g/dL (13.5-17.5); Lymphocytes Absolute Auto 2200 /uL (1100-4500); Lymphocytes Percent Auto 29.3 % (25-40); Mean Corpuscular HGB Conc 35.3 % (30-36); Mean Corpuscular Hemoglobin 32.8 PG (26-34); Mean Corpuscular Volume 92.7 fL (80-100); Monocytes Absolute Auto 500 /uL (0-900); Monocytes Percent Auto 6.6 % (3-14); Neutrophils Absolute Auto 4600 /uL (1500-7000); Neutrophils Percent Auto 60.6 % (50-75); Platelet Count 251 X10^3/uL (150-400); Red Blood Cell Count 4.72 X10^6/uL (4.5-5.9); Red Cell Distribution Width 12.9 % (11.6-14.8); White Blood Cell Count 7.6 X10^3/uL (4.5-11.0)
[2023-07-19 12:21] LABS: Hemoglobin A1C% w Est Avg Glu 5.2 % (4.0-6.0)
[2023-07-19 12:42] LABS: Alanine Aminotransferase 66 IU/L (<50); Albumin 4.7 g/dL (3.5-5.0); Albumin Globulin Ratio 1.3 (1.0-2.8); Alkaline Phosphatase 58 U/L (38-126); Aspartate Aminotransferase 42 IU/L (17-59); BUN Creatinine Ratio 26.1 (6-22); Bilirubin Total 1.2 mg/dL (0.2-1.3); Blood Urea Nitrogen 18 mg/dL (9-20); Calcium 9.7 mg/dL (8.4-10.2); Carbon Dioxide 26 mmol/L (22-32); Chloride 105 mmol/L (98-107); Cholesterol 249 mg/dL (140-199); Estimated Glomerular Filt Rate > 60 mL/min (>60); Globulin 3.5 g/dL (1.7-4.1); Glucose 108 mg/dL (70-100); HDL Cholesterol 49 mg/dL (40-60); HEMOLYSIS < 15 (0-50); LDL Cholesterol Calculated 166 mg/dL (<100); Potassium 4.5 mmol/L (3.4-5.1); Sodium 139 mmol/L (137-145); Total Protein 8.2 g/dL (6.3-8.2); Triglycerides 172 mg/dL (35-150)
[2023-07-19 14:28] LABS: Creatinine Urine Random 181.3 mg/dL
[2023-07-19 14:50] LABS: Microalbumi Creatinin Ratio Ur 135.1 ug/mg CR (<30); Microalbumin Urine Random 24.5 mg/dL (0-1.6)
== END ==
PROVIDERS: PCP Family Medicine; Referring Provider Family Medicine; Visit Provider Family Medicine
DX: Z00.00 Encounter for general adult medical examination without abnormal findings (principal); E11.9 Type 2 diabetes mellitus without complications; K21.9 Gastro-esophageal reflux disease without esophagitis
CPT/HCPCS: 36415; 80053; 80061; 82043; 82570; 83036; 84443; 85025

== ENCOUNTER → 2023-09-18 10:02 | Outpatient (CLI) | payer OTHER, SELFPAY ==
[2023-09-18 11:26] LABS: Clostridium Difficile Tox PCR Negative for C. diff (Negative)
[2023-09-18 13:50] LABS: Occult Blood 1 Positive (Negative); Occult Blood 2 Positive (Negative); Occult Blood 3 Positive (Negative)
== END ==
PROVIDERS: PCP Family Medicine; Referring Provider Nurse Practitioner Family; Visit Provider Nurse Practitioner Family
DX: R19.7 Diarrhea, unspecified (principal)
CPT/HCPCS: 82270; 87045; 87329; 87493

== ENCOUNTER → 2024-04-09 10:56 | Outpatient (CLI) | payer OTHER, SELFPAY ==
--- NOTE | 2024-04-09 11:31 | DI.RAD.S_ITS ---
PROCEDURE: XR CHEST 2V INDICATIONS: cough and fevers 7 days TECHNIQUE: 2 views of the chest were acquired. COMPARISON: [facility], CR, XR CHEST 1V, 10/28/2022, 6:38. FINDINGS: Surgical changes and devices: None. Lungs and pleura: There is mild bronchial wall thickening. No definite focal infiltrate. No pleural effusions or pneumothorax. Mediastinum: Mediastinal contours are normal. Heart size is normal. Bones and chest wall: No suspicious bony abnormalities. Soft tissues appear unremarkable. IMPRESSION: Suggestion of mild reactive airway disease such as bronchiolitis or viral illness. No definite focal infiltrate. No pleural effusion or pneumothorax. Dictated by: Andres Cornelius M.D. on 04/09/2024 at 11:55 Approved by: Andres Cornelius M.D. on 04/09/2024 at 11:56
[2024-04-09 12:55] LABS: Influenza A - CEPHEID Flu A NEGATIVE (NEGATIVE); Influenza B - CEPHEID Flu B NEGATIVE (NEGATIVE); Respiratory Syncytial Virus Negative (Negative)
[2024-04-09 13:03] LABS: COVID-19 CEPHEID 4-PLEX PCR Negative (Negative)
== END ==
PROVIDERS: PCP Family Medicine; Referring Provider Student in an Organized Health Care Education/Training Program; Visit Provider Student in an Organized Health Care Education/Training Program
DX: R05.1 Acute cough (principal); J02.9 Acute pharyngitis, unspecified; R50.9 Fever, unspecified; R05.9 Cough, unspecified
CPT/HCPCS: 0241U; 71046; 87070